=== PATIENT | male | born 1990 | race African-American/Black ===

== ENCOUNTER 2018-03-25 10:31 | Emergency (ER) | payer SELFPAY ==
[~2018-03-25] VITALS: Ht 172.7 cm; Wt 62.6 kg
[2018-03-25 10:33] VITALS: BP 157/75
--- NOTE | 2018-03-25 10:35 | NUR ---
PT AMBULATED TO BED 4
--- NOTE | 2018-03-25 10:36 | NUR ---
PATIENT PRESENTS TO ED FOR SUTURE REMOVAL OF RT HAND AND RT EYEBOW;GOOD WOUND HEALING PRCOESS;NO ERYTHEMA NOTED;DENIES N/V/D; SKIN IS PINK/WARM/DRY; AAOX4 WITH EVEN AND STEADY GAIT; LUNGS CLEAR BL; HR EVEN AND REGULAR; PT DENIES ANY FEVER, CP, SOB, OR COUGH AT THIS TIME; PATIENT STATES PAIN OF 0/10 AT THIS TIME; VSS; PATIENT POSITIONED FOR COMFORT; HOB ELEVATED; BEDRAILS UP X2; BED DOWN. ER MD MADE AWARE OF PT STATUS.
--- NOTE | 2018-03-25 10:42 | NUR ---
DR SHERYL Arroyo [facility].
--- NOTE | 2018-03-25 10:45 | NUR ---
SUTURES REMOVED BY ER MD;PT TOLERATED WELL PROCEDURE.
[2018-03-25 10:54] VITALS: BP 113/98
--- NOTE | 2018-03-25 10:54 | NUR ---
Patient discharged with v/s stable. Written and verbal after care instructions given and explained. Patient verbalized understanding. Ambulatory with steady gait. All questions addressed prior to discharge. Advised to follow up with PMD/[facility].
== END 2018-03-25 10:54 | disposition home or self-care (01) ==
LOC: MED 10:31
DX: S62.306A Unspecified fracture of fifth metacarpal bone, right hand, initial encounter for closed fracture (principal); W22.01XA Walked into wall, initial encounter; Y93.89 Activity, other specified; Y92.89 Other specified places as the place of occurrence of the external cause; Y99.8 Other external cause status
CPT/HCPCS: 99283